=== PATIENT | female | born 1995 | race African-American/Black ===

== ENCOUNTER 2017-09-06 08:50 | Emergency (ER) | payer OTHER ==
[~2017-09-06] VITALS: Ht 172.7 cm; Wt 107.0 kg
[2017-09-06 08:56] VITALS: BP 135/87
[2017-09-06] MEDS ORDERED: BACITRACIN ZINC OINT UDPKT TOP ONE (09:30)
[2017-09-06 09:59] LABS: CLARITY URINE CLEAR (CLEAR); COLOR URINE YELLOW (YELLOW); GLUCOSE URINE NEGATIVE (NEGATIVE); KETONES URINE NEGATIVE (NEGATIVE); LEUKOCYTE ESTERASE URINE NEGATIVE (NEGATIVE); NITRITE URINE NEGATIVE (NEGATIVE); OCCULT BLOOD URINE NEGATIVE (NEGATIVE); PROTEIN URINE NEGATIVE (NEGATIVE); SPECIFIC GRAVITY URINE 1.025 (1.005-1.030)
== END 2017-09-06 10:30 | disposition home or self-care (01) ==
LOC: ER 10:09
DX: S61.011A Laceration without foreign body of right thumb without damage to nail, initial encounter (principal); W26.8XXA Contact with other sharp object(s), not elsewhere classified, initial encounter; Y93.89 Activity, other specified; Y92.018 Other place in single-family (private) house as the place of occurrence of the external cause
CPT/HCPCS: 81003; 99283

== ENCOUNTER 2018-05-24 01:51 | Emergency (ER) | payer OTHER ==
[~2018-05-24] VITALS: Ht 175.3 cm; Wt 105.4 kg
[2018-05-24 02:18] VITALS: BP 125/76
== END 2018-05-24 08:00 | disposition left against medical advice (07) ==
LOC: ER 01:51
DX: R11.2 Nausea with vomiting, unspecified (principal); L50.9 Urticaria, unspecified; M79.1 Myalgia; Z53.21 Procedure and treatment not carried out due to patient leaving prior to being seen by health care provider

== ENCOUNTER 2025-03-16 22:23 | Emergency (ER) | payer MEDICAID, OTHER ==
[~2025-03-16] VITALS: Ht 175.3 cm; Wt 131.0 kg
[2025-03-17] MEDS: DEXAMETHASONE 4MG TABLET PO ONE (00:45)
[2025-03-17] MEDS: ALBUTEROL 2.5MG/0.5ML NEB 15 MG, IPRATROPIUM NEB 1.5 MG HHN NR (01:54)
[2025-03-17 01:55] VITALS: PULSE 98; RESP 18; O2SAT 97
[2025-03-17] MEDS: ALBUTEROL (0.5%) 2.5MG/0.5ML NEB HHN ONE (01:59)
[2025-03-17] MEDS: IPRATROPIUM BROMIDE (0.02%) 0.5MG/2.5ML NEB ONE (01:59)
[2025-03-17] MEDS: DEXAMETHASONE 4MG TABLET PO NR (02:15)
[2025-03-17] MEDS ORDERED: ALBU18HF2 IH (02:52)
[2025-03-17 03:30] VITALS: BP 186/134; PULSE 98; RESP 18; TEMP 37.1; O2SAT 97
== END 2025-03-17 03:33 | disposition home or self-care (01) ==
LOC: ER 22:23
DX: J06.9 Acute upper respiratory infection, unspecified (principal); F12.10 Cannabis abuse, uncomplicated; Z88.6 Allergy status to analgesic agent; Z90.89 Acquired absence of other organs
CPT/HCPCS: 99283; 71045; 94640; J8540; Z7610; 94070; 94664; 98960